=== PATIENT | female | born 1955 | race Caucasian/White ===

== ENCOUNTER 2023-06-26 11:11 | Outpatient (AMB) | payer MEDICARE, MEDICAID, SELFPAY ==
--- NOTE | 2023-06-26 11:12 | MHC.OFFVIS ---
Intake Visit Reasons: Hep C Intake Note: Kyra presents as a telehealth today. CC: She states that her appts have been having reschedules. She is having bleeding, mucus when she has a bowel movement and discomfort. 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 Allergies Androgenic Anabolic Steroid Allergy (Mild, Verified 06/26/23 11:19) Unknown cephalexin [From Keflex] Allergy (Mild, Verified 06/26/23 11:19) Unknown clindamycin Allergy (Mild, Verified 06/26/23 11:19) Unknown doxycycline Allergy (Mild, Verified 06/26/23 11:19) Unknown irbesartan [From Avapro] Allergy (Mild, Verified 06/26/23 11:19) Unknown nitrofurantoin [From Macrobid] Allergy (Mild, Verified 06/26/23 11:19) Unknown Penicillins Allergy (Mild, Verified 06/26/23 11:19) Unknown sofosbuvir Allergy (Mild, Verified 06/26/23 11:19) Unknown Sulfa (Sulfonamide Antibiotics) Allergy (Mild, Verified 06/26/23 11:19) Unknown sulfate ion Allergy (Mild, Verified 06/26/23 11:19) Unknown verapamil Allergy (Mild, Verified 06/26/23 11:19) Unknown HPI HPI Hep C: Details: HPI 68 yr old f being called for assessment she has noted some small amnts of blood in stool she has noted a lot of mucous she has lower abdominal pain she goes to the toilet once a day--formed she is in a wheelchair now due to knee infection --hard for her to walk she is on chronic oxycodone nausea she has plan for her teeth to be removed due to disease appetite is poor weight is up she had issues with hep C treatments and interactions ROS: Constitutional : No Weight loss, No Fever, No Chills ENT/Mouth : No sore throat, No Rhinorrhea Eyes: No Swelling, No Redness Cardiovascular : No Chest Pain, No SOB, No Edema Respiratory : No Cough, No Sputum, No Wheezing Gastrointestinal : see HPI Genitourinary : NO Dysuria, No Urinary Frequency, No Hematuria, No Urgency Musculoskeletal : + joint pain, No Myalgias, No Joint Swelling, contracted legs Skin : No Skin Lesions, No rash Neuro : + Weakness, No Numbness, No Dizziness, No Headache Psych : No Anxiety/Panic, No Depression Heme/Lymph: No Bruising, No Lymphadenopathy Endocrine : No Polyuria, No Polydipsia All other systems reviewed and are negative. Medical History Anxiety Asthma Atrophic vaginitis Chronic pain syndrome Chronic post-traumatic stress disorder (PTSD) Decreased mobility Dental caries Edema of right upper extremity Essential hypertension Fibromyalgia Hepatitis C Irritable bowel syndrome with constipation Low back pain Low vitamin D level MDD (major depressive disorder), recurrent episode, moderate Migraine Obesity, morbid, BMI 50 or higher Osteoarthritis of knee Overactive bladder PAF (paroxysmal atrial fibrillation) Pelvic pain syndrome Severe obesity Surgical History Mammography: 04/12/05 [facility]/USO tonsillectomy unilateral salpingo-oophorectomy section x 2 Family History no FH of CRC Social History non drinker, non smoker, no drug use A/P: 1/Hep C 2/ Abn bowel habit PLAN: 1/ Recheck labs incl viral load, 2/ US GB 3/ might need CT scan or colonoscopy for further assessment PFSH Surgical History (Updated 06/26/23 @ 11:12 by GLEN Daniels) Hx of knee surgery Telehealth Telehealth Telehealth Platform: Telephone Location of provider rendering services: practice address Location of patient: address on file Patient Identification confirmed using: Name, : Yes Telehealth method: voice only Patient verbally consented to treatment: Yes Patient verbally consented to billing insurance company: Yes Patient informed of any privacy concerns related to visit: Yes Minutes spent on Phone/Video with Pt.: 8 Assessment & Plan Assessment & Plan (1) Hep C w/o coma, chronic: Code(s): B18.2 - Chronic viral hepatitis C Category: Medical Plan: A/P: 1/Hep C 2/ Abn bowel habit PLAN: 1/ Recheck labs incl viral load, 2/ US GB 3/ might need CT scan or colonoscopy for further assessment (2) Abnormal bowel habits: Code(s): R19.8 - Other specified symptoms and signs involving the digestive system and abdomen Category: Medical Plan: A/P: 1/Hep C 2/ Abn bowel habit PLAN: 1/ Recheck labs incl viral load, 2/ US GB 3/ might need CT scan or colonoscopy for further assessment Plan see above Orders: Orders Comprehensive Met. Panel Today B18.2 - Chronic viral hepatitis C, K75.81 - Nonalcoholic steatohepatitis ([place]), R19.8 - Other specified symptoms and signs involving the digestive system and abdomen Hepatitis C Genotype Today B18.2 - Chronic viral hepatitis C, R19.8 - Other specified symptoms and signs involving the digestive system and abdomen Hepatitis C Viral Load Today B18.2 - Chronic viral hepatitis C, R19.8 - Other specified symptoms and signs involving the digestive system and abdomen Ferritin Today B18.2 - Chronic viral hepatitis C, R19.8 - Other specified symptoms and signs involving the digestive system and abdomen Vitamin A Today B18.2 - Chronic viral hepatitis C, R19.8 - Other specified symptoms and signs involving the digestive system and abdomen Vitamin C Today B18.2 - Chronic viral hepatitis C, R19.8 - Other specified symptoms and signs involving the digestive system and abdomen Vitamin K1 Today B18.2 - Chronic viral hepatitis C, R19.8 - Other specified symptoms and signs involving the digestive system and abdomen Zinc Today B18.2 - Chronic viral hepatitis C, R19.8 - Other specified symptoms and signs involving the digestive system and abdomen US abdomen complete Today B18.2 - Chronic viral hepatitis C, R19.8 - Other specified symptoms and signs involving the digestive system and abdomen Complete Blood Count Auto Diff Today B18.2 - Chronic viral hepatitis C, R19.8 - Other specified symptoms and signs involving the digestive system and abdomen Liver Fibrosis Pnl Today B18.2 - Chronic viral hepatitis C, R19.8 - Other specified symptoms and signs involving the digestive system and abdomen Hepatitis A,B,C Profile Today B18.2 - Chronic viral hepatitis C, R19.8 - Other specified symptoms and signs involving the digestive system and abdomen C Reactive Protein Today B18.2 - Chronic viral hepatitis C, R19.8 - Other specified symptoms and signs involving the digestive system and abdomen Vitamin B12 and Folate Today B18.2 - Chronic viral hepatitis C, R19.8 - Other specified symptoms and signs involving the digestive system and abdomen Vitamin B1 Today B18.2 - Chronic viral hepatitis C, R19.8 - Other specified symptoms and signs involving the digestive system and abdomen Vitamin B3 (Niacin) Today B18.2 - Chronic viral hepatitis C, R19.8 - Other specified symptoms and signs involving the digestive system and abdomen Vitamin B5 (Pantothenic Acid) Today B18.2 - Chronic viral hepatitis C, R19.8 - Other specified symptoms and signs involving the digestive system and abdomen Vitamin B6 Today B18.2 - Chronic viral hepatitis C, R19.8 - Other specified symptoms and signs involving the digestive system and abdomen Vitamin D 25-OH Total Today B18.2 - Chronic viral hepatitis C, R19.8 - Other specified symptoms and signs involving the digestive system and abdomen Coding Level of Care Code Tele New Pt Level 4 (70826) Diagnoses Hep C w/o coma, chronic B18.2 Abnormal bowel habits R19.8
== END 2023-06-26 13:11 | disposition home or self-care (01) ==
LOC: HO.HGI 11:11
PROVIDERS: PCP Internal Medicine; Visit Provider Internal Medicine Gastroenterology
DX: B18.2 Chronic viral hepatitis C (principal); R19.8 Other specified symptoms and signs involving the digestive system and abdomen
CPT/HCPCS: 99441

== ENCOUNTER → 2023-06-26 11:11 | Outpatient (BNVA) | payer MEDICAID, MEDICARE, SELFPAY | PROVIDERS: PCP Internal Medicine; Visit Provider Internal Medicine Gastroenterology ==